=== PATIENT | male | born 1995 | race Caucasian/White ===

== ENCOUNTER 2017-03-08 01:48 | Emergency (ER) | payer BC, OTHER ==
--- NOTE | ~2017-03-08 | CR94 ---
STS. [facility] A Service of [facility] & [facility] RADIOLOGY TEXT RESULTS PATIENT: PALMIRA MONTGOMERY LOCATION: SED : 95 UNIT #: [id number] AGE: [address]: Marquez Tan MD SEX: M ORDER DR: [id number] [place] [id number] E MR#: [id number] Acc #: [id number] NAME: PALMIRA MONTGOMERY : 1995 SEX: M STUDY DATE/TIME: 03/08/2017 2:31 UNIT: SED ROOM: STUDY DESCRIPTION: CR Elbow Min 3 Views Rt Attending Physician: Marquez Tan M.D. Ordering Physician: Marquez Tan M.D. MEDICAL IMAGING REPORT This report is preliminary unless electronic signature is present. EXAM Right elbow INDICATIONS Right elbow pain status post fall down stairs. FINDINGS 3 views of the right elbow without comparison. There is a displaced fracture involving the radial head. This extends into the articular surface. There is a 1.1 -cm free fracture fragment in the anterior joint recess. There is an elbow effusion. IMPRESSION 1. Displaced intraarticular fracture involving the radial head. There is a 1.1-cm free fracture fragment in the anterior joint space. 2. Elbow effusion. Dictated by... Jaime Powell M.D. THIS IS AN ELECTRONICALLY VERIFIED REPORT Jaime Powell M.D. at 03/08/2017 11:38 PM DANIELLA/shelly TD: 03/08/2017 11:43 JOB #: [id number] MEDICAL IMAGING REPORT Page 1 of 1
[~2017-03-08 01:48] MED LIST: ATARAX PO; IBUPROFEN PO; METRONIDAZOLE PO; NAPROSYN375 MG PO; PHENERGAN25 M1 PO
[2017-03-08] MEDS ORDERED: ANTI-INFLAMMATORY (01:59)
== END 2017-03-08 03:13 | disposition home or self-care (01) ==
LOC: SED 01:48
DX: S52.121A Displaced fracture of head of right radius, initial encounter for closed fracture (principal); W01.0XXA Fall on same level from slipping, tripping and stumbling without subsequent striking against object, initial encounter; Y92.009 Unspecified place in unspecified non-institutional (private) residence as the place of occurrence of the external cause
CPT/HCPCS: 29105; 73080; 99283